=== PATIENT | male | born 2000 | race Caucasian/White ===

== ENCOUNTER 2024-02-19 15:53 | Emergency (ER) | payer SELFPAY ==
[~2024-02-19] VITALS: Ht 182.9 cm; Wt 99.8 kg
[2024-02-19 15:58] VITALS: BP_SYST 140; PULSE 94; RESP 18; TEMP 98.3; O2SAT 98
[2024-02-19] MEDS: NACL 0.9% 1,000 ML IV ONE (17:14)
[2024-02-19] MEDS: ONDANSETRON HCL 4 MG/2 ML VIAL IVP ONE (17:16)
[2024-02-19] MEDS ORDERED: ONDA-8 TL (17:47)
[2024-02-19 18:44] VITALS: BP_SYST 95; PULSE 94; RESP 22; TEMP 98.3; O2SAT 98
== END 2024-02-19 19:12 | disposition home or self-care (01) ==
LOC: SED 15:53 → EDBD 15:53 → SED 19:12
DX: F10.129 Alcohol abuse with intoxication, unspecified (principal); Z79.899 Other long term (current) drug therapy; Y90.9 Presence of alcohol in blood, level not specified
CPT/HCPCS: 99283; 96374; 96361; J2405; J7030